=== PATIENT | female | born 1950 | race American Indian/Alaskan Native ===

== ENCOUNTER 2016-11-05 08:06 | Outpatient (CLI) | payer BC ==
[2016-11-05] MEDS ORDERED: LEXISCAN IV ONE ×2 (09:39→10:00)
[2016-11-05 11:22] VITALS: BP 153/86
--- NOTE | 2016-11-06 02:16 | Treadmill Report ---
INDICATION: Shortness of breath. ORDERING PHYSICIAN: Carlos Olivares MD FINDINGS: There is no scintigraphic evidence of myocardial ischemia. There is evidence of a fixed anterior wall defect secondary to overlying breast attenuation artifact. Gated wall imaging reveals normal left ventricular size, systolic function and wall motion, and left ventricular ejection fraction measuring 69%. CONCLUSION: Normal perfusion scan. JOB# [id number] GRIS/EMELIA
== END 2016-11-05 08:07 | disposition home or self-care (01) ==
LOC: ECHO 08:06
PROVIDERS: ATTEND Internal Medicine Cardiovascular Disease
DX: R07.2 Precordial pain (principal)
CPT/HCPCS: 78452; 93017; 93306; A9502; J2785

== ENCOUNTER 2017-10-14 13:41 | Emergency (ER) | payer BC, MEDICARE ==
[2017-10-14 14:00] VITALS: BP 157/75
--- NOTE | 2017-10-14 18:03 | Emergency Department Report ---
Blank Doc - Documentation Documentation: Patient is a 67-year-old asthmatic female who is presenting with intermittent palpitations. Patient states that for the past 2 weeks she's gets a sensation that her heart skipping beats and very irregular. This lasts from several seconds to several minutes at a time. Patient saw her primary doctor has been referred to sports instructor this appointment is not for another week and half. Patient denies any chest pain shortness of breath. EKG was done and shows a sinus rhythm a rate of 69 and normal axis normal intervals no ST segment elevation or depressions. There is some very mild sinus arrhythmia present. Patient will have electrolytes drawn including a potassium and magnesium.
[2017-10-14 18:23] LABS: Basophils % (Auto) 0.3 % (0.0-1.8); Eosinophils # (Auto) 0.1 K/mm3 (0.0-0.4); Eosinophils % (Auto) 1.8 % (0.0-4.3); Hematocrit 38.5 % (30.3-42.9); Hemoglobin 12.7 gm/dl (10.1-14.3); Lymphocytes % (Auto) 37.3 % (13.4-35.0); Mean Corpuscular HGB Conc 33 % (30-34); Mean Corpuscular Hemoglobin 29 pg (28-32); Mean Corpuscular Volume 89 fl (79-97); Monocytes # (Auto) 0.6 K/mm3 (0.0-0.8); Monocytes % (Auto) 10.9 % (0.0-7.3); Platelet Count 209 K/mm3 (140-440); Red Blood Count 4.33 M/mm3 (3.65-5.03)
[2017-10-14 18:39] LABS: BUN/Creatinine Ratio 18; Blood Urea Nitrogen 9 mg/dL (7-17); Calcium 9.2 mg/dL (8.4-10.2); Hemolysis Index 14
--- NOTE | 2017-10-14 20:30 | Emergency Department Report ---
ED Palpitations HPI - General Chief Complaint: Arrhythmia/Palpitations Stated Complaint: HEART FLUTTER Time Seen by Provider: 10/14/17 17:39 Source: patient Mode of arrival: Ambulatory Limitations: No Limitations - History of Present Illness Initial Comments: Patient is a 67-year-old asthmatic female who is presenting with intermittent palpitations. Patient states that for the past 2 weeks she's gets a sensation that her heart skipping beats and very irregular. This lasts from several seconds to several minutes at a time. Patient saw her primary doctor has been referred to carpenter form this appointment is not for another week and half. Patient denies any chest pain shortness of breath. MD Complaint: "heart racing", "skipped beats" - Related Data Previous Rx's Medication Instructions Recorded Last Taken Type D-Methorphan/PE/Acetaminophen 1 each PO Q6H #24 tablet 05/31/16 Unknown Rx [Tylenol Cold Multi-Symp Caplet] Ibuprofen [Motrin] 600 mg PO Q8H PRN #30 tablet 05/31/16 Unknown Rx Allergies Allergy/AdvReac Type Severity Reaction Status Date / Time No Known Allergies Allergy Verified 10/14/17 13:57 ED Review of Systems ROS: Stated complaint: HEART FLUTTER Other details as noted in HPI Comment: All other systems reviewed and negative ED Past Medical Hx - Past Medical History Hx Hypertension: Yes - Social History Smoking Status: Former Smoker Substance Use Type: None - Medications Home Medications: Home Medications Medication Instructions Recorded Confirmed Last Taken Type D-Methorphan/PE/Acetaminophen 1 each PO Q6H #24 tablet 05/31/16 Unknown Rx [Tylenol Cold Multi-Symp Caplet] Ibuprofen [Motrin] 600 mg PO Q8H PRN #30 tablet 05/31/16 Unknown Rx ED Physical Exam - General Limitations: No Limitations General appearance: alert, in no apparent distress - Head Head exam: Present: atraumatic, normocephalic - Eye Eye exam: Present: normal appearance - ENT ENT exam: Present: mucous membranes moist - Neck Neck exam: Present: normal inspection - Respiratory Respiratory exam: Present: normal lung sounds bilaterally. Absent: respiratory distress - Cardiovascular Cardiovascular Exam: Present: regular rate, normal rhythm. Absent: systolic murmur, diastolic murmur, rubs, gallop - GI/Abdominal GI/Abdominal exam: Present: soft, normal bowel sounds - Extremities Exam Extremities exam: Present: normal inspection - Back Exam Back exam: Present: normal inspection - Neurological Exam Neurological exam: Present: alert, oriented X3 - Psychiatric Psychiatric exam: Present: normal affect, normal mood - Skin Skin exam: Present: warm, dry, intact, normal color. Absent: rash ED Course Vital Signs 10/14/17 13:57 Temperature 98.3 F Pulse Rate 71 Respiratory 22 Rate Blood Pressure 157/75 O2 Sat by Pulse 98 Oximetry ED Medical Decision Making - Lab Data Result diagrams: 10/14/17 18:09 10/14/17 18:09 - EKG Data -: EKG Interpreted by Me - EKG Data Interpretation: other (EKG was done and shows a sinus rhythm a rate of 69 and normal axis normal intervals no ST segment elevation or depressions. There is some very mild sinus arrhythmia present.) - Medical Decision Making Electrolytes all all within normal limits and did not give any indication of why the patient may be having the palpitations. Patient is encouraged to keep her appointment with cardiology. Critical care attestation.: If time is entered above; I have spent that time in minutes in the direct care of this critically ill patient, excluding procedure time. ED Disposition Clinical Impression: Palpitations Disposition: DC-01 TO HOME OR SELFCARE Is pt being admited?: No Does the pt Need Aspirin: No Condition: Stable Referrals: RODDY GOLD MD [Primary Care Provider] - 3-5 Days Forms: Work/School Release Form(ED)
== END 2017-10-14 20:55 | disposition home or self-care (01) ==
LOC: ED 13:41
DX: R00.2 Palpitations (principal); I10 Essential (primary) hypertension; Z87.891 Personal history of nicotine dependence
CPT/HCPCS: 36415; 80048; 83735; 84484; 85025; 93005; 93010; 99283